=== PATIENT | male | born 1990 | race Two or more races ===

== ENCOUNTER 2025-01-07 07:55 | Emergency (ER) | payer MEDICAID, OTHER ==
[~2025-01-07] VITALS: Ht 175.3 cm; Wt 93.8 kg
[2025-01-07 08:18] VITALS: BP 165/121; PULSE 93; RESP 16; TEMP 97; O2SAT 97
--- NOTE | 2025-01-07 09:24 | ED.PDOC ---
Eye-HPI HPI Comments 34-YEAR-OLD MALE PRESENTS TO THE EMERGENCY DEPARTMENT WITH CHIEF COMPLAINT OF EARACHE. PATIENT STATES HE HAS BEEN EXPERIENCING PAIN IN HIS BILATERAL EARS X4 YEARS. PATIENT ENDORSES BEING SEEN AT [facility] FOR SYMPTOMS AND BEING DISCHARGED FROM BOTH FACILITIES WITH ANTIBIOTICS HOWEVER, THEY HAVE PROVIDED NO RELIEF. PATIENT COMMENTS, " I HAVE LARVA IN MY EARS THE ARE CRAWLING OUT AND BITING ON MY NECK". PATIENT FURTHER COMMENTS, "I NEED INTERNAL ANTIBIOTICS". PATIENT DENIES HEARING LOSS, DRAINAGE, BLEEDING, REDNESS, OR INSERTION OF FOREIGN OBJECTS. NO OTHER SYMPTOMS OR MODIFYING FACTORS PRESENT AT THIS TIME. Chief Complaint: Earache Time Seen by MD: 08:24 Primary Care Provider: NONE Reviewed Notes: Nurses Notes, Medications, Allergies Allergies: Uncoded Allergies: MOTRIN (Allergy, Unknown, 01/07/25) Information Source: Patient Mode of Arrival: Ambulatory Timing: Months Duration: Since onset Prehospital treatment: Other (ANTIBIOTICS) Quality: Pain Lids: Normal Conjunctiva: Normal Cornea: Normal Pupils: Normal EOM: Normal Fundus: Normal Slit lamp exam: Normal Anterior chamber: Normal Mouth: Normal Nose: Normal Sinuses: Normal Oropharynx: Normal Onset: Spontaneous Throat Exposed to: None History of: None Last Tetanus: Unknown Modifying factors: Nothing Associated signs and symptoms: Ear Pain Past Medical History PAST MEDICAL HISTORY: Denies Surgical History: Denies all surgeries Family History Family History: Unknown Social History Smoker: Non-Smoker Alcohol: Denies ETOH Use Drugs: Denies Drug Use Lives In: Home EENTM: reports: ear pain All Other Systems: Reviewed and Negative ( PER HPI) Physical Exam General Appearance: No Apparent Distress, Normal HEENT: Normal ENT Inspection, Pharynx Normal, TMs Normal Neck: Full Range of Motion, Non-Tender, Normal, Normal Inspection Respiratory: Chest Non-Tender, Lungs Clear, No Accessory Muscle Use, No Respiratory Distress, Normal Breath Sounds Cardiovascular: No Edema, No Murmur, No Gallop, Normal Peripheral Pulses, Regular Rate/Rhythm Breast Exam: Deferred Gastrointestinal: No Organomegaly, Non Tender, No Pulsatile Mass, Normal Bowel Sounds, Soft Genitalia: Deferred Pelvic: Deferred Rectal: Deferred Extremities: No calf tenderness, Normal capillary refill, Normal inspection, Normal range of motion, Non-tender, No pedal edema Musculoskeletal : Apperance: Normal Neurologic: Alert, commissioning agent II-XII nml as Tested, No Motor Deficits, Normal Affect, Normal Mood, No Sensory Deficits Cerebellar Function: Normal Reflexes: Normal Skin: Dry, Normal Color, Warm Lymphatic: No Adenopathy Was a procedure done? Was a procedure done?: No EENT DIFF Eye: Other Ear: Abrasion, Cerumen Impaction, Otitis Externa, Otitis Media X-Ray, Labs, Meds, VS Vital Signs Date Time Temp Pulse Resp B/P (MAP) Pulse Ox O2 Delivery O2 Flow Rate FiO2 01/07/25 08:18 97.0 93 16 165/121 (136) 97 97.0 Lab Test 01/07/25 10:10 Range/Units White Blood Count 5.2 4.4-10.8 10^3/uL Red Blood Count 4.91 4.5-5.90 10^6/uL Hemoglobin 15.4 13.5-17.5 g/dL Hematocrit 45.2 41.0-53.0 % Mean Corpuscular Volume 92.0 80.0-100.0 fL Mean Corpuscular Hemoglobin 31.3 28.0-32.0 pg Mean Corpuscular Hemoglobin Concent 34.0 32.0-36.0 g/dL Red Cell Distribution Width 12.4 11.8-14.3 % Platelet Count 298 140-450 10^3/uL Mean Platelet Volume 8.3 6.9-10.8 fL Neutrophils (%) (Auto) 59.9 37.0-80.0 % Lymphocytes (%) (Auto) 31.9 10.0-50.0 % Monocytes (%) (Auto) 5.6 0.0-12.0 % Eosinophils (%) (Auto) 1.8 0.0-7.0 % Basophils (%) (Auto) 0.8 0.0-2.0 % Neutrophils # (Auto) 3.1 1.6-8.6 10 ^3/uL Lymphocytes # (Auto) 1.7 0.4-5.4 10 ^3/uL Monocytes # (Auto) 0.3 0-1.3 10 ^3/uL Eosinophils # (Auto) 0.1 0-0.8 10 ^3/uL Basophils # (Auto) 0 0-0.2 10 ^3/uL Nucleated Red Blood Cells 0.1 % Sodium Level 138 136-145 mmol/L Potassium Level 3.3 L 3.5-5.1 mmol/L Chloride Level 102 98-107 mmol/L Carbon Dioxide Level 29 20-31 mmol/L Anion Gap 7 5-15 Blood Urea Nitrogen 8 L 9-23 mg/dL Creatinine 1.08 0.700-1.30 mg/dL Glomerular Filtration Rate Calc 92 >90 mL/min BUN/Creatinine Ratio 7.4 L 10.0-20.0 Serum Glucose 119 H 74-106 mg/dL Calcium Level 9.5 8.7-10.4 mg/dL 34-year-old male presents here with bilateral ear discomfort and pain. He is speaking of larva that is coming out. And significant fluid. On my examination he has no evidence of otitis media. He does have tenderness to pulling of bilateral tragus. Therefore I will discharge him with otitis externa. Patient is requesting p.o. antibiotics. I had advised him it is not needed. He is requesting blood work to be performed. At this time blood work is largely unremarkable. It does have mild hypokalemia of 3.3. But otherwise unremarkable. At this time I have discharged him home. Option has been sent for ear drops. Advised him to follow up with his PCP in 2-3 days and return to the ER if symptoms worsen or persist. I advised him if he is having significant ear discomfort and pain despite antibiotics he should visit at ENT. Time of 1ST Reevaluation: 11:35 Reevaluation 1ST: Unchanged Patient Education/Counseling: Diagnosis, Treatment Family Education/Counseling: No Family Present Departure 1 Departure Time of Disposition: 11:31 Impression: Primary Impression: Otitis externa Qualified Codes: H60.63 - Unspecified chronic otitis externa, bilateral Disposition: 01 HOME / SELF CARE / HOMELESS Condition: Good Additional Instructions: Follow up with the primary care physician in 2-3 days. Return to the ER if symptoms worsen or persist. e-Prescriptions [id number] (Otic) (Neomycin/Polymyxin/Hydroc) 1 % Sharmaine 1 % OT Q6HR for 7 Days, #1 BOT Prov: LANDON TAPIA MD 01/07/25 Discharged With: Self Critical Care Note Critical Care Time?: No Stability Stability form required: No Heart Score Heart Score: Heart Score Response (Comments) Value History N/A 0 EKG N/A 0 Age N/A 0 Risk Factors N/A 0 Troponin N/A 0 Total 0 I personally scribed for LANDON TAPIA MD ([email or web address]) on 01/07/25 at 09:57. Electronically submitted by Ivy Coleman ([email or web address]). I personally scribed for LANDON TAPIA MD ([email or web address]) on 01/07/25 at 11:22. Electronically submitted by Ivy Coleman ([email or web address]). LANDON TAPIA MD Jan 07, 2025 09:24
[2025-01-07 10:33] LABS: Basophils # (auto) 0 10 ^3/uL (0-0.2); Basophils % (auto) 0.8 % (0.0-2.0); Eosinophils # (auto) 0.1 10 ^3/uL (0-0.8); Eosinophils % (auto) 1.8 % (0.0-7.0); Hematocrit 45.2 % (41.0-53.0); Hemoglobin 15.4 g/dL (13.5-17.5); Lymphocytes # (auto) 1.7 10 ^3/uL (0.4-5.4); Lymphocytes % (auto) 31.9 % (10.0-50.0); Mean Corpuscular Hemoglobin 31.3 pg (28.0-32.0); Monocytes # (auto) 0.3 10 ^3/uL (0-1.3); Monocytes % (auto) 5.6 % (0.0-12.0); Neutrophils # (auto) 3.1 10 ^3/uL (1.6-8.6); Neutrophils % (auto) 59.9 % (37.0-80.0); Nucleated Red Blood Cells % 0.1 %; Platelet Count (auto) 298 10^3/uL (140-450); Red Blood Cells 4.91 10^6/uL (4.5-5.90); Red Cell Distribution Width 12.4 % (11.8-14.3); White Blood Cell 5.2 10^3/uL (4.4-10.8)
[2025-01-07 10:37] LABS: Chloride 102 mmol/L (98-107); Sodium 138 mmol/L (136-145)
[2025-01-07 10:38] LABS: Anion Gap 7 (5-15); Carbon Dioxide 29 mmol/L (20-31)
[2025-01-07 10:39] LABS: Calcium 9.5 mg/dL (8.7-10.4)
[2025-01-07 10:42] LABS: Potassium 3.3 mmol/L (3.5-5.1)
[2025-01-07 10:43] LABS: BUN/Creatinine Ratio 7.4 (10.0-20.0)
[2025-01-07 10:45] LABS: Blood Urea Nitrogen 8 mg/dL (9-23); Glucose 119 mg/dL (74-106)
[2025-01-07] MEDS ORDERED: NEOM1SOL OT (11:33)
[2025-01-07] MEDS: POTASSIUM CHL 20 Meq TABLET PO ONE (12:01)
== END 2025-01-07 12:07 | disposition home or self-care (01) ==
LOC: ER 07:55
DX: H60.93 Unspecified otitis externa, bilateral (principal); Z88.1 Allergy status to other antibiotic agents
CPT/HCPCS: 36415; 80048; 85025